=== PATIENT | male | born 1945 | race Caucasian/White ===

== ENCOUNTER 2024-01-02 13:43 | Inpatient (IN) | payer OTHER, MEDICARE ==
[~2024-01-02] VITALS: Ht 160 cm; Wt 77.1 kg
[~2024-01-02 13:43] MED LIST: ASPI-807 PO; FOLI1TAB16 PO; GLIM4TAB PO; LORA-258 PO; METF-881 PO; METO-357 PO; SITA100T PO; TAMS-12 PO; TRIA0.252; VALS160T2 PO
[2024-01-02] MEDS ORDERED: ALBUTEROL FS 2.5 MG/3 ML VIAL.NEB ONE (14:15)
[2024-01-02] MEDS ORDERED: IPRATROPIUM NEB FS 0.5 MG/2.5 ML AMPUL.NEB ONE (14:15)
[2024-01-02] MEDS ORDERED: predniSONE 20 MG TABLET ONE (14:25)
[2024-01-02 14:26] VITALS: O2SAT 95
[2024-01-02] MEDS: ALBUTEROL FS 2.5 MG/3 ML VIAL.NEB NEB ONE (14:26)
[2024-01-02] MEDS: IPRATROPIUM NEB FS 0.5 MG/2.5 ML AMPUL.NEB NEB ONE (14:26)
[2024-01-02] MEDS: predniSONE 20 MG TABLET PO ONE (14:28)
[2024-01-02 14:32] LABS: BASOPHILS # (AUTO) 0.1 K/uL (0.0-0.2); BASOPHILS % (AUTO) 0.8 % (0.0-2.0); EOSINOPHILS # (AUTO) 0.1 K/uL (0.0-0.7); HEMATOCRIT 33 % (39-51); HEMOGLOBIN 11.3 g/dL (13.5-17.5); LYMPHOCYTES # (AUTO) 1.4 K/uL (0.8-4.8); LYMPHOCYTES % (AUTO) 18.8 % (20.0-44.0); MEAN CORPUSCULAR HEMOGLOBIN 31 PG (26.0-33.0); MEAN CORPUSCULAR HGB CONC 35 g/dl (31.0-36.0); MEAN CORPUSCULAR VOLUME 91 fL (80-96); MONOCYTES # (AUTO) 0.6 K/uL (0.1-1.30); MONOCYTES % (AUTO) 8.5 % (2.0-12.0); NEUTROPHILS # (AUTO) 5.2 K/uL (1.8-8.9); NEUTROPHILS % (AUTO) 70.9 % (43.0-81.0); PLATELET COUNT (AUTO) 203 K/uL (150-450); RED BLOOD CELL COUNT(AUTO) 3.61 MIL/uL (4.5-6.0); RED CELL DISTRIBUTION WIDTH 14.7 % (11.5-15.0); WHITE BLOOD COUNT (AUTO) 7.3 K/uL (4.3-11.0)
[2024-01-02 14:36] VITALS: O2SAT 100
[2024-01-02 14:43] LABS: CALCIUM, SERUM 8.2 mg/dL (8.5-10.1); CARBON DIOXIDE 24 mmol/L (21-32); CHLORIDE 106 mmol/L (98-107); CREATININE 1.1 mg/dL (0.6-1.3); GLUCOSE 266 mg/dL (74-106); POTASSIUM 4.6 mmol/L (3.5-5.1); SODIUM SERUM 138 mmol/L (136-145); UREA NITROGEN, BLOOD 15 mg/dL (7-18)
[2024-01-02] MEDS ORDERED: ASPIRIN 81 MG TAB.CHEW ONE (15:50)
[2024-01-02] MEDS: ASPIRIN 81 MG TAB.CHEW PO ONE (15:52)
[2024-01-02] MEDS ORDERED: HYDR-4077 PO (16:53)
[2024-01-02] MEDS ORDERED: ALBU18HF2 IH (16:53)
[2024-01-02] MEDS ORDERED: AMLO-212 PO (16:53)
[2024-01-02] MEDS ORDERED: SITA1TAB2 PO (16:53)
[2024-01-02] MEDS ORDERED: ALBUTEROL FS 2.5 MG/3 ML VIAL.NEB NEB PRN (17:30)
[2024-01-02] MEDS ORDERED: IPRATROPIUM NEB FS 0.5 MG/2.5 ML AMPUL.NEB NEB PRN (17:30)
[2024-01-02] MEDS ORDERED: Z GUARD REMEDY 4 OZ OINT TP PRN (17:30)
[2024-01-02] MEDS ORDERED: MAGNESIUM HYDROXIDE 30 ML UDC PO PRN (17:30)
[2024-01-02] MEDS ORDERED: HYDROCODONE/APAP 5/325MG TABLET PO PRN (17:30)
[2024-01-02] MEDS ORDERED: ONDANSETRON HCL/PF 4 MG/2 ML VIAL IVP PRN (17:30)
[2024-01-02] MEDS ORDERED: ACETAMINOPHEN 325 MG TABLET PO PRN (17:30)
[2024-01-02] MEDS ORDERED: DEXTROSE 50%-WATER 50 ML DISP.SYRIN IV PRN (17:30)
[2024-01-02] MEDS ORDERED: MAG HYDROX/AL HYDROX/SIMETH 30 ML UDC PO PRN (17:30)
[2024-01-02 17:50] VITALS: BP 172/78; TEMP 98; O2SAT 98
[2024-01-02] MEDS: BLOOD SUGAR DIAGNOSTIC 1 EACH STRIP IN SCH (18:07)
[2024-01-02] MEDS: INSULIN REGULAR, HUMAN 100 UNIT/ML 3 ML VIAL SQ PRN (18:10)
[2024-01-02 20:00] VITALS: BP 179/79; TEMP 98.1; O2SAT 98
[2024-01-02] MEDS: methylPREDNISolone SOD SUCC 40 MG/ML VIAL IV SCH (21:39)
[2024-01-03] VITALS: BP 175/76; TEMP 98.4; O2SAT 96
[2024-01-03 04:00] VITALS: BP 181/87; TEMP 98.4; O2SAT 97
[2024-01-03 07:15] LABS: HEMATOCRIT 35 % (39-51); HEMOGLOBIN 11.9 g/dL (13.5-17.5); LYMPHOCYTES # (AUTO) 0.7 K/uL (0.8-4.8); MEAN CORPUSCULAR HEMOGLOBIN 31 PG (26.0-33.0); MEAN CORPUSCULAR HGB CONC 34 g/dl (31.0-36.0); MEAN CORPUSCULAR VOLUME 91 fL (80-96); MONOCYTES # (AUTO) 0.1 K/uL (0.1-1.30); MONOCYTES % (AUTO) 0.9 % (2.0-12.0); NEUTROPHILS # (AUTO) 7.9 K/uL (1.8-8.9); NEUTROPHILS % (AUTO) 91.1 % (43.0-81.0); PLATELET COUNT (AUTO) 231 K/uL (150-450); RED BLOOD CELL COUNT(AUTO) 3.83 MIL/uL (4.5-6.0); RED CELL DISTRIBUTION WIDTH 14.2 % (11.5-15.0); WHITE BLOOD COUNT (AUTO) 8.7 K/uL (4.3-11.0)
[2024-01-03 07:39] LABS: CALCIUM, SERUM 8.4 mg/dL (8.5-10.1); CARBON DIOXIDE 22 mmol/L (21-32); CHLORIDE 105 mmol/L (98-107); GLUCOSE 276 mg/dL (74-106); MAGNESIUM 2.1 mg/dL (1.8-2.4); PHOSPHORUS 4.4 mg/dL (2.5-4.9); POTASSIUM 4.4 mmol/L (3.5-5.1); SODIUM SERUM 138 mmol/L (136-145); UREA NITROGEN, BLOOD 21 mg/dL (7-18)
[2024-01-03] MEDS: PANTOPRAZOLE 40 MG TABLET.DR PO SCH (07:39)
[2024-01-03 08:00] VITALS: BP 152/66; TEMP 97.9; O2SAT 97
[2024-01-03 08:30] LABS: CHOLESTEROL 205 mg/dL (<200); HDL CHOLESTEROL 48 mg/dL (40-60); LDL 137 mg/dL (0-99); TRIGLYCERIDES 30 mg/dL (30-150)
[2024-01-03] MEDS: hydrALAZINE HCL 50 MG TABLET PO SCH (08:41)
[2024-01-03] MEDS: TAMSULOSIN 0.4 MG CAP.SR.24H PO SCH (08:41)
[2024-01-03] MEDS: AMLODIPINE BESYLATE 5 MG TABLET PO SCH (08:41)
[2024-01-03] MEDS: ASPIRIN EC 81 MG TABLET.DR PO SCH (08:41)
[2024-01-03] MEDS: LINAGLIPTIN 5 MG TABLET PO SCH (08:56)
[2024-01-03] MEDS: METFORMIN 500 MG TABLET PO SCH (08:56)
[2024-01-03] MEDS ORDERED: GLIMEPIRIDE 1 MG TABLET PO SCH (09:00)
[2024-01-03 09:24] LABS: THYROID STIMULATING HORMONE 0.29 uIU/mL (0.358-3.74)
[2024-01-03] MEDS: GLIMEPIRIDE 4 MG TABLET PO SCH (10:20)
[2024-01-03] MEDS: LEVOFLOXACIN (250MG) 250 MG TABLET PO SCH (11:18)
[2024-01-03] MEDS: ENOXAPARIN SODIUM 40 MG/0.4 ML DISP.SYRIN SQ SCH (11:19)
[2024-01-03] MEDS: methylPREDNISolone SOD SUCC 40 MG/ML VIAL IV SCH (11:37)
[2024-01-03 12:00] VITALS: BP 157/66; TEMP 98.1; O2SAT 96
[2024-01-03 16:00] VITALS: BP 128/99; TEMP 99; O2SAT 95
[2024-01-03 20:00] VITALS: BP 155/71; TEMP 97.9; O2SAT 98
[2024-01-04] VITALS: BP 154/73; TEMP 98.1; O2SAT 97
[2024-01-04 04:00] VITALS: BP 156/71; TEMP 98.2; O2SAT 97
[2024-01-04 08:00] VITALS: BP 150/74; TEMP 97.9; O2SAT 95
[2024-01-04] MEDS ORDERED: LEVO500T90 PO (10:38)
[2024-01-04] MEDS ORDERED: METH4TAB3 PO (10:38)
[2024-01-04 10:43] VITALS: BP 150/74
[2024-01-04] MEDS: VALSARTAN 80 MG TABLET PO SCH (10:43)
[2024-01-04] MEDS: ATORVASTATIN 40 MG TABLET PO SCH (10:43)
[2024-01-04] MEDS: METOPROLOL SUCCINATE 50 MG TAB.SR.24H PO SCH (10:43)
[2024-01-05] MEDS ORDERED: AMLODIPINE BESYLATE 5 MG TABLET PO SCH (09:00)
== END 2024-01-04 11:34 | disposition home or self-care (01) | DRG 140 ==
LOC: ER 13:49 → TELE1 16:51 → MEDSG1 01-04 10:33
PROVIDERS: ADMIT Nurse Practitioner Acute Care; ATTEND Nurse Practitioner Acute Care
DX: J44.1 Chronic obstructive pulmonary disease with (acute) exacerbation (principal); I21.A1 Myocardial infarction type 2; I27.20 Pulmonary hypertension, unspecified; D64.9 Anemia, unspecified; E11.9 Type 2 diabetes mellitus without complications; E66.9 Obesity, unspecified; E78.5 Hyperlipidemia, unspecified; N40.0 Benign prostatic hyperplasia without lower urinary tract symptoms; I25.10 Atherosclerotic heart disease of native coronary artery without angina pectoris; F17.210 Nicotine dependence, cigarettes, uncomplicated; I10 Essential (primary) hypertension; Z79.82 Long term (current) use of aspirin; Z79.84 Long term (current) use of oral hypoglycemic drugs; Z98.61 Coronary angioplasty status; J40 Bronchitis, not specified as acute or chronic; Z68.30 Body mass index [BMI] 30.0-30.9, adult; Z71.6 Tobacco abuse counseling
CPT/HCPCS: 36415; 71045-TC; 80048-TC; 80061-TC; 82728-TC; 82962-TC; 83540-TC; 83735-TC; 83880; 84100-TC; 84439-TC; 84443-TC; 84484-TC; 85025-TC; 93307-TC; 93970-TC; 94799-TC; G0378; J1650; J1815; J2919